=== PATIENT | male | born 1985 | race Hispanic/Latino ===

== ENCOUNTER 2021-10-13 19:39 | Emergency (ER) | payer OTHER, SELFPAY ==
[2021-10-13] MEDS ORDERED: Ondansetron PF 4 MG/2 ML Vial ONE (20:26)
[2021-10-13] MEDS ORDERED: Morphine 4 MG/ML VIAL ONE (20:26)
[2021-10-13] MEDS ORDERED: Ketorolac Tromethamine 30 MG/ML VIAL ONE (20:26)
[2021-10-13] MEDS ORDERED: Boostrix 0.5 ML (Tdap) VIAL ONE (20:27)
== END 2021-10-13 21:08 | disposition home or self-care (01) ==
LOC: CSHERS 19:39
DX: S06.0X9A Concussion with loss of consciousness of unspecified duration, initial encounter (principal); S02.2XXA Fracture of nasal bones, initial encounter for closed fracture; W22.8XXA Striking against or struck by other objects, initial encounter
CPT/HCPCS: 70450; 70486; 72125; 90471; 90715; 96374; 96375; J1885; J2270; J2405